=== PATIENT | male | born 1965 | race Hispanic/Latino ===

== ENCOUNTER 2021-11-11 14:02 | Inpatient (IN) | payer SELFPAY ==
[2021-11-11] MEDS ORDERED: Morphine 4 MG/ML VIAL ONE ×2 (14:43→16:12)
[2021-11-11 14:55] LABS: Hemoglobin 13.9 g/dL (14.0-18.0); Mean Corpuscular HGB CONC 31.2 g/dL (32.0-36.0); Mean Corpuscular Hemoglobin 29.9 pg (27.0-31.0); Mean Corpuscular Volume 95.8 fL (78.0-98.0); RBC Distribution Width 12.9 % (11.5-14.5); Red Blood Cell (RBC) Count 4.66 mill/uL (4.70-6.10); White Blood Cell (WBC) Count 25.5 thou/uL (4.8-10.8)
[2021-11-11 15:08] LABS: ALT (SGPT) 10 U/L (8-55); AST (SGOT) 14 U/L (5-34); Albumin 3.9 g/dL (3.5-5.0); Alkaline Phosphatase 95 U/L (40-110); Anion Gap 17 mmol/L (10-20); BUN (Urea Nitrogen) 20 mg/dL (8.4-25.7); Bilirubin, Total 0.8 mg/dL (0.2-1.2); Calc. Creatinine Clearance 0 mL/min (70-130); Calcium 9.2 mg/dL (7.8-10.44); Carbon Dioxide 24 mmol/L (22-29); Chloride 101 mmol/L (98-107); Globulin 4.1 g/dL (2.4-3.5); Glucose 123 mg/dL (70-105); Potassium 3.6 mmol/L (3.5-5.1); Sodium 138 mmol/L (136-145)
[2021-11-11 15:16] LABS: Band 17 % (5-11); Lymphocytes 9 % (21-51); MDiff Complete? YES; Mean Platelet Volume 9.3 fL (7.4-10.4); Metamyelocyte 3 % (0-0); Monocytes 7 % (0-10); Neutrophil 64 % (42-75); Platelet Count 198 thou/uL (130-400); Platelet Morphology Comment Appears Adequate; RBC Morphology Normal
[2021-11-11 18:42] VITALS: BMI 37.8
[2021-11-11] MEDS ORDERED: HYDROcodone/Acetaminophen 5/325 mg Tablet PO PRN (18:44)
[2021-11-11] MEDS ORDERED: Acetaminophen 325 MG TAB PO PRN (18:44)
[2021-11-11] MEDS ORDERED: Ondansetron ODT 4 MG TAB PO PRN (18:44)
[2021-11-11] MEDS ORDERED: Senokot S 8.6-50 MG TAB PO PRN (18:44)
[2021-11-11] MEDS ORDERED: Acetaminophen 650 MG Suppository PR PRN (18:44)
[2021-11-11] MEDS ORDERED: Ondansetron PF 4 MG/2 ML Vial IVP PRN (18:44)
[2021-11-11] MEDS ORDERED: Morphine 4 MG/ML VIAL SLOW IVP PRN (18:44)
[2021-11-11 18:45] LABS: SARS-CoV-2 NAA Rapid Test Not Detected (NotDetected)
[2021-11-11] MEDS ORDERED: hydrALAZINE 20 MG/ML VIAL SLOW IVP PRN (18:47)
[2021-11-11] MEDS ORDERED: Labetalol HCl 100 MG/20 ML VIAL SLOW IVP PRN (18:47)
[2021-11-11] MEDS ORDERED: Ampicillin/Sulbactam 3 GM in Sodium Chloride 0.9% 100 ML IVPB SCH (19:15)
[2021-11-12] MEDS: Ampicillin/Sulbactam 3 GM in Sodium Chloride 0.9% 100 ML IVPB SCH ×5 (00:15→23:08)
[2021-11-12 07:18] LABS: Mean Corpuscular HGB CONC 30.9 g/dL (32.0-36.0); Mean Corpuscular Hemoglobin 30.1 pg (27.0-31.0); Mean Corpuscular Volume 97.3 fL (78.0-98.0); Mean Platelet Volume 7.4 fL (7.4-10.4); Platelet Count 331 thou/uL (130-400); RBC Distribution Width 12.8 % (11.5-14.5); Red Blood Cell (RBC) Count 4.33 mill/uL (4.70-6.10)
[2021-11-12 07:30] LABS: Anion Gap 12 mmol/L (10-20); BUN (Urea Nitrogen) 17 mg/dL (8.4-25.7); Calc. Creatinine Clearance 168 mL/min (70-130); Calcium 8.7 mg/dL (7.8-10.44); Carbon Dioxide 26 mmol/L (22-29); Chloride 100 mmol/L (98-107); Glucose 131 mg/dL (70-105); Potassium 3.3 mmol/L (3.5-5.1); Sodium 135 mmol/L (136-145)
[2021-11-12 07:55] LABS: Band 34 % (5-11); Hypochromia SLIGHT = 6-15 cells (100X) (0-5/hpf); Lymphocytes 9 % (21-51); MDiff Complete? YES; Monocytes 8 % (0-10); Neutrophil 49 % (42-75); Platelet Morphology Comment Appears Adequate; Polychromasia SLIGHT = 2-3 cells (100X) (0-2/hpf)
[2021-11-12] MEDS ORDERED: Potassium Chloride 20 MEQ TAB PO SCH (08:00)
[2021-11-12] MEDS: HYDROcodone/Acetaminophen 5/325 mg Tablet PO PRN ×2 (09:40→17:24)
[2021-11-12] MEDS ORDERED: methylPREDNISolone Sod Succ/PF 125 MG/2 ML VIAL IVP SCH (20:30)
[2021-11-12] MEDS ORDERED: fentaNYL 50 mcg/hour Patch TD SCH (20:30)
[2021-11-12] MEDS: Ketorolac Tromethamine 30 MG/ML VIAL IVP PRN (21:48)
[2021-11-13] MEDS: Ampicillin/Sulbactam 3 GM in Sodium Chloride 0.9% 100 ML IVPB SCH ×4 (05:36→23:29)
[2021-11-13] MEDS: Ketorolac Tromethamine 30 MG/ML VIAL IVP PRN (09:39)
[2021-11-13] MEDS ORDERED: Chloraseptic Spray 180 ml Bottle PO PRN (16:29)
[2021-11-13] MEDS ORDERED: Cepastat Lozenges 1 LOZ PO PRN (16:30)
[2021-11-13] MEDS ORDERED: MUCINEX INSTASOOTHE SPRY (115 ML BOT) PO PRN (17:37)
[2021-11-13] MEDS: HYDROcodone/Acetaminophen 5/325 mg Tablet PO PRN (23:33)
[2021-11-14] MEDS: Ampicillin/Sulbactam 3 GM in Sodium Chloride 0.9% 100 ML IVPB SCH ×2 (06:24→13:02)
[2021-11-14] MEDS ORDERED: Ibuprofen 800 MG TAB PO PRN (18:35)
[2021-11-14] MEDS: Amoxicillin/Potassium Clav 875 MG TAB PO SCH (20:06)
[2021-11-15] MEDS: HYDROcodone/Acetaminophen 5/325 mg Tablet PO PRN (03:52)
[2021-11-15] MEDS: Amoxicillin/Potassium Clav 875 MG TAB PO SCH (08:59)
[2021-11-15 17:41] VITALS: BP 143/90; TEMP 98.1
[2021-11-18 15:13] LABS: Cytoplasmic (C-ANCA) <1:20 titer (Neg:<1:20); Myeloperoxidase AutoAbs <9.0 U/mL (0.0-9.0); Perinuclear (P-ANCA) <1:20 titer (Neg:<1:20); Proteinase-3 AutoAbs Less than 3.5 U/mL (0.0-3.5)
== END 2021-11-15 18:21 | disposition home or self-care (01) | DRG 205 ==
LOC: ERS 14:02 → T4-B 17:05
PROVIDERS: ADMIT Emergency Medicine; ATTEND Family Medicine
DX: R91.1 Solitary pulmonary nodule (principal); J85.2 Abscess of lung without pneumonia; R07.81 Pleurodynia; R03.0 Elevated blood-pressure reading, without diagnosis of hypertension; Z20.822 Contact with and (suspected) exposure to COVID-19; Z87.891 Personal history of nicotine dependence
CPT/HCPCS: 36415; 71045; 71260; 74230; 80048; 80053; 83520; 84484; 85025; 86037; 86480; 87040; 87070; 87116; 87205; 87206; 89220; 93005; 96374; 96376; J0295; J1885; J2270; J2930; J3490; U0002

== ENCOUNTER 2021-12-26 13:51 | Outpatient (CLI) | payer OTHER | END 2021-12-26 13:52 | disposition home or self-care (01) | LOC: RAD 13:51 | PROVIDERS: ATTEND Internal Medicine Critical Care Medicine | DX: R06.00 Dyspnea, unspecified (principal); R91.8 Other nonspecific abnormal finding of lung field | CPT/HCPCS: 71046 ==